=== PATIENT | male | born 1970 | race Caucasian/White ===

== ENCOUNTER 2020-11-29 11:53 | Emergency (ER) | payer MEDICAID, OTHER ==
[~2020-11-29] VITALS: Ht 167.6 cm; Wt 63.5 kg
[2020-11-29] MEDS ORDERED: MORPHINE SULFATE 4 MG/1 ML DISP.SYRIN IV ONE (12:30)
[2020-11-29] MEDS ORDERED: MORPHINE SULFATE 4 MG/1 ML DISP.SYRIN ONE (12:44)
--- NOTE | 2020-11-29 12:49 | NUR ---
COVID swab collected and sent to LAB.
[2020-11-29 12:53] LABS: POTASSIUM 4.1 mmol/L (3.5-5.1)
[2020-11-29 12:59] LABS: BILIRUBIN,TOTAL 0.4 mg/dL (0.2-1.0); TOTAL PROTEIN, SERUM 8.2 g/dL (6.4-8.2)
[2020-11-29] MEDS ORDERED: KETOROLAC TROMETHAMINE 15 MG INJ IVP ONE (13:15)
[2020-11-29] MEDS ORDERED: ACETAMINOPHEN 325 MG TABLET PO ONE (13:15)
[2020-11-29] MEDS ORDERED: ACETAMINOPHEN ES 500 MG TABLET ONE (13:29)
[2020-11-29] MEDS ORDERED: HYDROMORPHONE 1 MG/1 ML DISP.SYRIN IV ONE (13:30)
[2020-11-29] MEDS ORDERED: CYCLOBENZAPRINE HCL 10 MG TABLET ONE (13:30)
[2020-11-29] MEDS ORDERED: CYCLOBENZAPRINE HCL 10 MG TABLET PO ONE (13:30)
[2020-11-29] MEDS ORDERED: KETOROLAC TROMETHAMINE 15 MG INJ ONE (13:30)
[2020-11-29] MEDS ORDERED: HYDROMORPHONE 1 MG/1 ML DISP.SYRIN ONE (13:31)
[2020-11-29] MEDS ORDERED: HYDR-3980 PO (13:53)
[2020-11-29] MEDS ORDERED: CYCL5TAB PO (13:53)
[2020-11-29 14:08] VITALS: BP 129/60
--- NOTE | 2020-11-29 14:08 | NUR ---
IV removed. Catheter intact and site benign. Pressure and 4x4 gauze applied to site. No bleeding noted.
--- NOTE | 2020-11-29 14:10 | NUR ---
Patient discharged to home in stable condition. Written and verbal after care instructions given. Patient verbalizes understanding of instructions. Stressed follow up or return to ER for worsening s/s.
== END 2020-11-29 14:10 | disposition home or self-care (01) ==
LOC: ER 11:53
DX: U07.1 COVID-19 (principal); M54.9 Dorsalgia, unspecified; M79.10 Myalgia, unspecified site; F17.200 Nicotine dependence, unspecified, uncomplicated
CPT/HCPCS: 36415; 80053; 86140; 87426; 96374; 96375; 99284; J1170; J1885; J2270; A4663; A9150